=== PATIENT | male | born 1985 | race Two or more races ===

== ENCOUNTER 2017-08-15 01:17 | Emergency (ER) | payer OTHER ==
--- NOTE | 2017-08-15 01:53 | PDOC ---
History of Present Illness - General History Source: Patient Exam Limitations: No Limitations - History of Present Illness Initial Comments: 08/15/17 03:20 The patient is a 31 year old male with history of cigarette smoking who presents to the ED complaining of approximately 1 week of progressively worsening right ear pain. No discharge. He also complains of progressively worsening pain in his right teeth and jaw. States he has been meaning to see a dentist but has yet to make an appointment. No fever or chills. No nausea, vomiting, or diarrhea. <Bee Byrd - Last Filed: 08/15/17 03:20> <Danika Fournier - Last Filed: 08/15/17 04:35> - General Chief Complaint: Ear Problem Stated Complaint: EAR PAIN/JAW PAIN Time Seen by Provider: 08/15/17 01:53 Past History <Bee Byrd - Last Filed: 08/15/17 03:20> <Danika Fournier - Last Filed: 08/15/17 04:35> - Past Medical History Allergies/Adverse Reactions: Allergies Allergy/AdvReac Type Severity Reaction Status Date / Time No Known Allergies Allergy Verified 08/15/17 01:52 Home Medications: Ambulatory Orders Acetaminophen [Tylenol] 650 mg PO PRN 08/15/17 Ibuprofen [Motrin -] 600 mg PO TID #30 tablet 08/15/17 Ofloxacin Otic [Floxin Otic (Ear) Solution -] 10 drop OT DAILY #1 bottle Penicillin V Potassium [Pen Vee K -] 250 mg PO QID #40 tablet 08/15/17 Review of Systems - Review of Systems Able to Perform ROS?: Yes Comments:: 08/15/17 03:22 GENERAL/CONSTITUTIONAL: No fever or chills. No weakness. HEAD, EYES, EARS, NOSE AND THROAT: +Right ear pain, no discharge. +R teeth and jaw pain. No change in vision. No sore throat. CARDIOVASCULAR: No chest pain or shortness of breath. RESPIRATORY: No cough, wheezing, or hemoptysis. GASTROINTESTINAL: No nausea, vomiting, diarrhea or constipation. GENITOURINARY: No dysuria, frequency, or change in urination. MUSCULOSKELETAL: No joint or muscle swelling or pain. No neck or back pain. SKIN: No rash NEUROLOGIC: No headache, vertigo, loss of consciousness, or change in strength/ sensation. ENDOCRINE: No increased thirst. No abnormal weight change. HEMATOLOGIC/LYMPHATIC: No anemia, easy bleeding, or history of blood clots. ALLERGIC/IMMUNOLOGIC: No hives or skin allergy. <Bee Byrd - Last Filed: 08/15/17 03:20> *Physical Exam - Vital Signs Last Vital Signs Temp Pulse Resp BP Pulse Ox 98.7 F 88 20 126/62 4 L 08/15/17 01:52 08/15/17 01:52 08/15/17 01:52 08/15/17 01:52 08/15/17 01:52 - Physical Exam Comments: 08/15/17 03:22 GENERAL: Awake, alert, and fully oriented, in no acute distress HEAD: No signs of trauma EYES: PERRLA, EOMI, sclera anicteric, conjunctiva clear ENT: Broken teeth and dental carries on upper and lower right face. +Otisis externa of right ear.Hearing grossly normal, nares patent, oropharynx clear without exudates. Moist mucosa NECK: Normal ROM, supple, no lymphadenopathy, JVD, or masses EXTREMITIES: Normal range of motion, no edema. No clubbing or cyanosis. No cords, erythema, or tenderness NEUROLOGICAL: Cranial nerves II through XII grossly intact. Normal speech, normal gait SKIN: Warm, Dry, normal turgor, no rashes or lesions noted. <Bee Byrd - Last Filed: 08/15/17 03:20> Medical Decision Making - Medical Decision Making 08/15/17 04:29 Pt comes with jaw swelling and ear pain on the right side. Pt has dental caries , broken teeth and fillings that are falling out. Pt also has right ear canal swelling with wet cerumen inside. Pt has otitis externa. States that he tried to wash out his ears while he was in the shower and that he puts water into his ears on a regular basis while showering. Pt will be treated with penVK for dental caries and he will receiev floxin otic for OE. Percocet in the ER for pain and motrin to go with. <Danika Fournier - Last Filed: 08/15/17 04:35> *DC/Admit/Observation/Transfer - Attestations Scribe Attestion: 08/15/17 03:23 Documentation prepared by Bee Byrd, acting as medical corps officer for Danika Fournier MD. <Bee Byrd - Last Filed: 08/15/17 03:20> - Discharge Dispostion Admit: No <Danika Fournier - Last Filed: 08/15/17 04:35> Diagnosis at time of Disposition: Otitis externa, Dental caries - Discharge Dispostion Disposition: HOME Condition at time of disposition: Stable - Prescriptions Prescriptions: Ofloxacin Otic [Floxin Otic (Ear) Solution -] 10 drop OT DAILY #1 bottle Ibuprofen [Motrin -] 600 mg PO TID #30 tablet Penicillin V Potassium [Pen Vee K -] 250 mg PO QID #40 tablet - Referrals Referrals: Dakota Wei MD [Primary Care Provider] - - Patient Instructions Printed Discharge Instructions: DI for Tooth Decay, DI for Otitis Externa
[2017-08-15 02:03] VITALS: BP 126/62; PULSE 88; TEMP 98.7; BMI 31.0
[2017-08-15] MEDS ORDERED: PENICILLIN V POTASSIUM 500 MG TABLET PO ONE (03:13)
[2017-08-15] MEDS ORDERED: IBUPROFEN 600 MG TABLET (FP) PO ONE ×2 (03:20→03:25)
== END 2017-08-15 03:34 | disposition home or self-care (01) ==
LOC: JER 01:17
DX: H60.8X1 Other otitis externa, right ear (principal)
CPT/HCPCS: 99281-25